=== PATIENT | female | born 2000 | race Caucasian/White ===

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

== ENCOUNTER 2018-04-03 17:43 | Emergency (ER) | payer MEDICAID ==
[~2018-04-03] VITALS: Ht 157.5 cm; Wt 64.0 kg
[2018-04-03 17:54] VITALS: BP 115/72
== END 2018-04-03 20:19 | disposition home or self-care (01) ==
LOC: ER 17:43
DX: O26.893 Other specified pregnancy related conditions, third trimester (principal); R10.9 Unspecified abdominal pain; O99.323 Drug use complicating pregnancy, third trimester; F12.10 Cannabis abuse, uncomplicated; O99.513 Diseases of the respiratory system complicating pregnancy, third trimester; J45.909 Unspecified asthma, uncomplicated; Z3A.32 32 weeks gestation of pregnancy; Z88.0 Allergy status to penicillin; V48.0XXA Car driver injured in noncollision transport accident in nontraffic accident, initial encounter; Y93.89 Activity, other specified; Y99.8 Other external cause status; Y92.89 Other specified places as the place of occurrence of the external cause
CPT/HCPCS: 76805

== ENCOUNTER 2018-04-23 11:25 | Observation (INO) | payer MEDICAID ==
[~2018-04-23] VITALS: Ht 30.5 cm; Wt 0.5 kg
[2018-04-23] MEDS ORDERED: PREN27TA7 OR (12:23)
[2018-04-23] MEDS ORDERED: LACTATED RINGER'S 1,000 ML IV ONE (13:51)
== END 2018-04-23 15:45 | disposition home or self-care (01) | DRG 955 ==
LOC: LDRP 11:25
PROVIDERS: ADMIT Specialist; ATTEND Specialist
DX: O26.899 Other specified pregnancy related conditions, unspecified trimester (principal); R10.9 Unspecified abdominal pain; W22.03XA Walked into furniture, initial encounter; Y93.89 Activity, other specified; Y92.89 Other specified places as the place of occurrence of the external cause; Y99.0 Civilian activity done for income or pay; Z3A.00 Weeks of gestation of pregnancy not specified
CPT/HCPCS: 59025; 76815; 81002; G0378; 96365; 96366

== ENCOUNTER 2018-04-24 11:50 | Observation (INO) | payer MEDICAID ==
[~2018-04-24] VITALS: Ht 157.5 cm; Wt 64.9 kg
[~2018-04-24 11:50] MED LIST: PREN27TA7 OR
[2018-04-24] MEDS ORDERED: TERBUTALINE SULFATE 1 MG/ML 1ML VIAL SC ONE (13:03)
[2018-04-24] MEDS: TERBUTALINE SULFATE 1 MG/ML 1ML VIAL SC SCH ×2 (13:35→13:55)
== END 2018-04-24 14:13 | disposition home or self-care (01) | DRG 566 ==
LOC: LDRP 11:50
PROVIDERS: ADMIT Obstetrics & Gynecology; ATTEND Obstetrics & Gynecology
DX: O62.9 Abnormality of forces of labor, unspecified (principal); O60.03 Preterm labor without delivery, third trimester; Z3A.34 34 weeks gestation of pregnancy
CPT/HCPCS: 59025; 81002; 96372; G0378; J3105

== ENCOUNTER 2018-09-19 22:12 | Emergency (ER) | payer MEDICAID ==
[~2018-09-19] VITALS: Ht 157.5 cm; Wt 59.4 kg
[2018-09-19 22:39] VITALS: BP 119/78
[2018-09-19] MEDS ORDERED: SODIUM CHLORIDE 0.9% 1,000 ML IV ONE (23:15)
[2018-09-19] MEDS ORDERED: methylPREDNISolone SOD SUCC 125 MG/2 ML VL IV ONE (23:15)
[2018-09-19] MEDS ORDERED: ONDANSETRON HCL 4 MG/2 ML VIAL IV ONE (23:15)
[2018-09-19] MEDS ORDERED: cefTRIAXone SOD 1,000 MG VL IM ONE (23:15)
[2018-09-19] MEDS ORDERED: MORPHINE SULFATE 4 MG/ML SYR/VIAL IV ONE (23:30)
[2018-09-20] MEDS ORDERED: BENZOCAINE (DENTAL) 20 % SPRAY 60ML MT ONE
[2018-09-20] MEDS ORDERED: LIDOCAINE VISCOUS 2% 15ML UD PO ONE (00:15)
[2018-09-20] MEDS ORDERED: SODIUM CHLORIDE 0.9% 1,000 ML IV ONE (00:45)
== END 2018-09-20 01:28 | disposition home or self-care (01) ==
LOC: ER 22:12
DX: J03.90 Acute tonsillitis, unspecified (principal); J45.909 Unspecified asthma, uncomplicated; F12.10 Cannabis abuse, uncomplicated
CPT/HCPCS: 87070; 87880; 96372; 96374; 96375; 99284; J0696; J2270; J2405; J2930

== ENCOUNTER 2018-09-24 15:38 | Emergency (ER) | payer MEDICAID ==
[~2018-09-24] VITALS: Ht 157.5 cm; Wt 59.9 kg
[2018-09-24 16:41] VITALS: BP 118/77
== END 2018-09-24 18:07 | disposition home or self-care (01) ==
LOC: ER 15:46
DX: L01.00 Impetigo, unspecified (principal); J45.909 Unspecified asthma, uncomplicated

== ENCOUNTER 2019-08-23 21:41 | Emergency (ER) | payer MEDICAID ==
[~2019-08-23] VITALS: Ht 157.5 cm; Wt 59.4 kg
[2019-08-23] MEDS ORDERED: ACETAMINOPHEN 325 MG TAB PO ONE (22:00)
[2019-08-23 22:01] VITALS: BP 121/65
[2019-08-23] MEDS ORDERED: IBUPROFEN 800 MG TAB PO ONE (23:00)
[2019-08-23] MEDS ORDERED: cefTRIAXone SOD 1,000 MG VL IM ONE (23:15)
== END 2019-08-23 23:39 | disposition home or self-care (01) ==
LOC: ER 21:46
DX: J03.00 Acute streptococcal tonsillitis, unspecified (principal); J45.909 Unspecified asthma, uncomplicated; Z79.899 Other long term (current) drug therapy
CPT/HCPCS: 96372; 99283; J0696